=== PATIENT | female | born 1960 | race Caucasian/White ===

== ENCOUNTER → 2019-08-22 10:59 | Outpatient (BNVA) | payer BC, SELFPAY | PROVIDERS: Family Provider Nurse Practitioner; PCP Nurse Practitioner; Visit Provider Obstetrics & Gynecology | DX: N81.10 Cystocele, unspecified (principal); Z12.4 Encounter for screening for malignant neoplasm of cervix | CPT/HCPCS: 81000; 88175 ==

== ENCOUNTER 2019-09-10 13:03 | Observation (INO) | payer BC, SELFPAY ==
[2019-09-09 13:48] VITALS: BMI 23.0
[2019-09-10] VITALS (15 sets, daily range): BP systolic 121–179; BP diastolic 72–92; PULSE 60–91; RESP 11–20; TEMP 36.2–36.8; O2SAT 95–100
[2019-09-10 10:04] LABS: Add Urine Microscopic? NO
[2019-09-10] MEDS: sodium chloride 0.9% 1,000 ML 30 ML IV (10:36)
--- NOTE | 2019-09-10 10:41 | ANES.PREANE2 ---
Pre-Anesthetic Assessment Pre-Anesthetic Assessment: Height/Weight: Height 1.6 m Weight 58.967 kg Temp Pulse Resp BP Pulse Ox 98.3 F 70 18 179/92 97 09/10/19 10:38 09/10/19 10:38 09/10/19 10:38 09/10/19 10:38 09/10/19 10:38 Preop Diagnosis: Stress urinary incontinence Proposed Procedure: Operation Date: 09/10/19 10:40 Proposed Procedures p Midurethral single incision sling 90126 N39.3(Not Applicable) - Kye Yip MD Social: Social History: No alcohol and No tobacco Exam: Pre-Anes Outpt Exam: alert, oriented x 3, clear to auscultation bilaterally and regular rate & rhythm Airway: Submandibular: WNL Cervical ROM: WNL MP: 2 Dentition: Other (teeth ok) History/ROS: No significant history except as noted Pulmonary: Pulmonary: None reported CV/HEM: CV/HEM: None reported : : None reported GI: GI: None reported Metabolic: Metabolic: None reported Musc/skel: Musc/skel: None reported Neuropsych: Neuropsych: None reported Anesthetic Plan: ASA status: 1 Anesthesia: Anesthesia Evaluation and General Risk of > 500 ml blood loss (7ml/kg in children): No Meds/Allergies Current Medications: Current Medications Generic Name Dose Route Start Last Admin Trade Name Freq PRN Reason Stop Dose Admin Sodium Chloride 1,000 mls @ 30 ml s/hr 09/10/19 09:15 09/10/19 10:36 Sodium Chloride 0.9% IV 09/11/19 09:14 30 mls/hr .Q24H CHICHI Administration PFSH Anesthesia PFSH: Family History Grandmother Breast cancer maternal and paternal Diabetes maternal and paternal Hypertension maternal and paternal Family/Other Colon cancer paternal aunt Father Diabetes Hypertension Social History Smoking and tobacco status: never smoked Alcohol intake: never Data Anesthesia Cardiac Studies: No Data to Display
[2019-09-10 10:57] LABS: Basophils % 0.2 %; Eosinophils # 0.1 10^3/uL (0.0-0.8); Eosinophils % 1.2 %; Hematocrit 44.3 % (37.0-47.0); Hemoglobin 14.5 g/dL (11.5-15.3); Lymphocytes # 1.6 10^3/uL (0.8-4.8); Lymphocytes % 27.9 %; Mean Corpuscular HGB Conc 32.7 g/dL (30.0-36.0); Mean Corpuscular Hemoglobin 28.7 pg (28.0-34.0); Mean Corpuscular Volume 87.5 fL (81-99); Mean Platelet Volume 9.9 fL (7.4-10.4); Monocytes # 0.5 10^3/uL (0.2-0.9); Neutrophils # 3.6 10^3/uL (1.8-7.7); Neutrophils % 62.5 %; Nucleated Red Blood Cells % 0 %; Platelet Count 256 10^3/cmm (130-400); Red Blood Count 5.06 10^6/uL (4.1-5.3); Red Cell Distribution Width 12.9 % (12.1-15.1); White Blood Count 5.7 10^3/uL (4.0-10.0)
[2019-09-10 11:15] LABS: Chloride 103 mmol/L (98-107); Potassium 3.6 mmol/L (3.5-5.1); Sodium 140 mmol/L (136-145)
[2019-09-10 11:16] LABS: Bilirubin Urine Neg (NEGATIVE); Blood Urine Neg (Negative); Glucose Urine UA Norm (Normal); Ketones Urine Negative (Negative); Leukocyte Esterase Urine Negative (Negative); Nitrate Urine Negative (Negative); Protein Urine Neg (Negative); Urine Appearance Clear (CLEAR); Urine Color Straw (Yellow); Urobilinogen Urine Norm (Negative)
--- NOTE | 2019-09-10 11:19 | W.PM.OPSUD ---
Surgery/Procedure H&P Update DATE OF PROCEDURE: September 10, 2019 DATE H&P PERFORMED: 09/09/19 H&P UPDATE INFORMATION: I have reviewed H&P completed within last 30 days, I have examined patient prior to procedure and No changes to prior documentation PREOP DIAGNOSIS: Stress urinary incontinence PLANNED PROCEDURE: Operation Date: 09/10/19 10:40 Proposed Procedures p Midurethral single incision sling 80611 N39.3(Not Applicable) - Kye Yip MD
--- NOTE | 2019-09-10 12:15 | P.OP_ITS ---
Operative Report Date of procedure: September 10, 2019 Pre-op Diagnosis: Stress urinary incontinence Procedure Done: mid urethral sling Surgeon: Kye Yip Anesthesia: MAC Estimated blood loss (mL): 20 Complications: none Condition: stable Disposition: PACU Brief History: 59-year-old female with stress urinary incontinence Procedure: After obtaining informed consent, the patient was taken to the oper ating room and placed in the supine position, given general anesthesia, and prepped and draped in sterile fashion. The abdomen, vulva and vagina were prepped and draped in a sterile manner. A time out procedure was performed. Exam under anesthesia performed. A Gallardo catheter was placed in the bladder. The anterior vaginal mucosa beneath the midurethra was infiltrated with 0.5% Marcaine with epinephrine. A vertical midline incision was made beneath the midurethra, nearly 1.5 cm length. Careful submucosal dissection was performed bilaterally up to the interior portion of the inferior pubic ramus. The insertion of adductor longus tendon on the patient?s pubic ramus was identified as reference land gisele. Palpated the notch along the internal edge of ischiopubic ramus where the adductor longus tendon and the inferior pubic ramus meet. The needle of the SIS inserted aiming at the location of this notch. One of the integrated self-fixating tips place onto the needle by sliding it over the end of the needle. The needle/sling assembly was inserted toward the location of identified reference notch making sure that the flat of the handle is perpendicular to the desired path. The needle was tracked along the posterior surface of the ischiopubic ramus until the midline gisele on the mesh is approximately at the midline position under the urethra. The needle was removed and the same was repeated on the contralateral side until the appropriate sling tension under the urethra was achieved ensuring that the mesh lays flat. The needle was removed and vaginal incision was closed in a running interlocking fashion with 2-0 Vicryl. Then the Gallardo catheter was removed and cystoscope was inserted. The bladder was filled with sterile water. Complete evaluation of the bladder mucosa was performed noting no lacerations, dimpling, tears, bleeding of the mucosa or muscular layers. Both ureteral orifices were identified. Prompt excretion of urine from both ureteral orifices was noted. Cystoscope was withdrawn. Excellent hemostasis was obtained. Sponge, lap, needle, and instrument counts were correct times three. The patient was taken to the recovery room, awake and in stable condition.
[2019-09-10 12:57] LABS: Anion Gap 16.6 (5-19); Blood Urea Nitrogen 10 mg/dL (8-23); Calcium 9.1 mg/dL (8.5-10.5); Carbon Dioxide 24 mmol/L (22-29); Creatinine Clr Calc Pharmacy 64.9622; Glomerular Filtration Rate 73.2 mL/min (90-130); Glucose 85 mg/dL (65-115); Osmolality Calculated 285 mOsm/kg (285-295)
[2019-09-10] MEDS: dextrose 5%-lactated ringers 1,000 ML 125 ML IV ×2 (13:49→21:26)
[2019-09-10] MEDS: ketorolac 30 mg/mL INJ IVP ×2 (13:49→18:20)
[2019-09-10] MEDS: HYDROcodone-acetaminophen 5-325 mg Tablet PO (16:54)
[2019-09-10] MEDS: docusate sodium 100 mg Capsule PO (18:20)
[2019-09-11] MEDS: ketorolac 30 mg/mL INJ IVP ×2 (01:18→07:28)
[2019-09-11 04:00] VITALS: BP 118/68; PULSE 75; RESP 20; TEMP 36.5; O2SAT 98
[2019-09-11 04:52] LABS: Hemoglobin 12.3 g/dL (11.5-15.3); Mean Corpuscular HGB Conc 33.2 g/dL (30.0-36.0); Mean Corpuscular Hemoglobin 28.9 pg (28.0-34.0); Mean Corpuscular Volume 87.1 fL (81-99); Platelet Count 214 10^3/cmm (130-400); Red Blood Count 4.25 10^6/uL (4.1-5.3); Red Cell Distribution Width 12.9 % (12.1-15.1); White Blood Count 10.6 10^3/uL (4.0-10.0)
[2019-09-11] MEDS: dextrose 5%-lactated ringers 1,000 ML 125 ML IV (05:35)
--- NOTE | 2019-09-11 06:34 | PC.NURSE ---
d/c chang Chang catheter removed by this nurse at 0631. 100mL of urine was emptied from the bag before removal. 9mL water removed from balloon. Catheter in tact after removal. Pt tolerated well. Educated pt to hit the call light for assistance when she needed to get up and use the restroom.
[2019-09-11 07:28] VITALS: BP 124/76; PULSE 65; RESP 16; TEMP 36.4; O2SAT 98
[2019-09-11] MEDS: docusate sodium 100 mg Capsule PO (07:28)
--- NOTE | 2019-09-11 09:46 | PC.NURSE ---
PVR Gallardo removed by concrete [employer]ing [employer] operator nurse around 0630. Pt voided 100 mL around 0730, PVR ranged from 124-156 for an average of 140 mL. Pt voided 100 mL around 0900, PVR averaged 201 mL.
[2019-09-11 11:13] VITALS: BP 145/74; PULSE 66; RESP 16; TEMP 36.5; O2SAT 100
--- NOTE | 2019-09-11 11:18 | PM.OBGYDC ---
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 The procedure was performed without complication. Overnight observation was uneventful. She afebrile and hemodynamically stable, tolerating diet well, ambulating without difficulty. PVR after first void 150ml. Physical Exam Const: COMMON NORMALS: patient oriented x3, alert and well nourished GENERAL APPEARANCE: comfortable, well kempt and other (Normal Posture) Resp: COMMON NORMALS: clear to auscultation bilaterally EFFORT & INSPECTION: Yes able to speak in complete sentences AUSCULTATION: clear to auscultation bilaterally Cardio: COMMON NORMALS: regular rate, regular rhythm, S1 normal heart sound present and S2 normal heart sound present RATE: regular rate RHYTHM: regular rhythm HEART SOUNDS: S1 normal heart sound present, S2 normal heart sound present and no murmurs GI: COMMON NORMALS: Soft to palpation and non-tender PALPATION: Yes Soft to palpation, No Rebound tenderness present and Yes Other GI palpation findings present (No distention, no rigidity ) : EXTERNAL FEMALE EXAM: Yes normal appearance of the urethra SPECULUM EXAM - VAGINA: Yes lesion other (scar (Vaginal healing well, no signs of infecion)), No vaginal bleeding and Yes other (Vaginal wall- good support) SPECULUM EXAM - CERVIX: Yes Cervix absent BIMANUAL EXAM - VAGINA & UTERUS: Yes uterus absent BIMANUAL EXAM - ADNEXA, OTHER: Yes normal adnexae OB/EXTERNAL & SPECULUM: No vaginal bleeding Neuro: COMMON NORMALS: patient oriented x3 SENSORIUM/ORIENTATION: Yes alert Psych: APPEARANCE: Yes well kempt Urinary Catheter Management^: Gallardo: Cath Placed During This Visit: yes, but has since been removed by the nurse Reason for Continuing Indwelling Catheter: Decision to DC Catheter Urinary Catheter Date of Insertion: 09/10/19 Urinary Catheter Time of Insertion: 11:45 Date Urinary Catheter Removed: 09/11/19 Time Urinary Catheter Discontinued: 06:30 Discharge Data Data Completed and Pending: Labs from last 24 hours 09/11/19 09/10/19 09/10/19 04:38 10:30 10:30 WBC 10.6 H RBC 4.25 Hgb 12.3 Hct 37.0 MCV 87.1 MCH 28.9 MCHC 33.2 RDW 12.9 Plt Count 214 MPV 10.0 Carbon Dioxide 24 Anion Gap 16.6 BUN 10 Creatinine 0.8 GFR Calculation 73.2 L Glucose 85 Calculated Osmolal ity 285 Calcium 9.1 Blood Type A Positive Rho(D) Type Positive Antibody Screen Negative Laboratory Tests 09/10/19 10:30 WBC 5.7 Hgb 14.5 Hct 44.3 Plt Count 256 Vitals: Last Vital Signs Temp 97.7 F 09/11/19 11:13 Pulse 66 09/11/19 11:13 Resp 16 09/11/19 11:13 BP 145/74 09/11/19 11:13 Pulse Ox 100 09/11/19 11:13 Discharge Plan Discharge Patient Disposition: Home, Self-Care Condition: Stable Prescriptions: New ibuprofen 800 mg Tablet 800 mg PO Q8H Qty: 60 RF: 0 hydrocodone-acetaminophen 5-325 mg Tablet 1 - 2 tab PO Q6H PRN (Reason: Moderate To Severe Pain) Qty: 20 RF: 0 docusate sodium 100 mg Capsule 100 mg PO BID Qty: 30 RF: 0 No Action No Known Home Medications RF: 0 Discharge Orders: Discharge Order (Routine); Ordered 09/11/19 Ordered By: Kye Yip Referrals: Kye Yip MD [Physician] - 09/23/19 11:00 am Discharge Diet: Regular Discharge Activity: Increase activity as tolerated Patient Instructions: Hydrocodone/Acetaminophen (By mouth), Ibuprofen (By mouth), Laxative, Stool Softeners (By mouth), Bladder Sling Procedures (DC) Activity Restrictions/Additional Instructions: Pelvic rest for 6 weeks: no sex, tampons, vaginal douches. Return to ER if any fever, bleeding or increased pain. Discharge Attestations SCIENTIST/ENGINEER Time Spent in Discharge Care*: greater than 30 min Specific Discharge Activities: Specific discharge activities: educating patient Coding Level of Care Code Acute Banquet Lead for [facility] Fwd Diagnoses CHERELLE (stress urinary incontinence, female) N39.3
[2019-09-11 13:59] VITALS: BP 145/74; PULSE 66; RESP 16; TEMP 36.5; O2SAT 100
== END 2019-09-11 13:10 | disposition home or self-care (01) ==
LOC: MEDSURG 13:03
PROVIDERS: Admitting Provider Obstetrics & Gynecology; PCP Nurse Practitioner Family; Visit Provider Obstetrics & Gynecology
PROC: (CPT 57288; principal; 2019-09-10 10:40)
PROC: 0TJB8ZZ Inspection of Bladder, Via Natural or Artificial Opening Endoscopic (ICD-10-PCS; CPT 52000; 2019-09-10 10:40)
DX: N39.3 Stress incontinence (female) (male) (principal)
CPT/HCPCS: 57288; 12345; 36415; 51798; 80048; 81003; 85025; 85027; 86850; 86900; 96374; 96375; C1713; G0378; J0690; J1100; J1885; J2001; J2405; J2704; J2710; J3010; J3490; J7030

== ENCOUNTER → 2019-09-16 13:37 | Outpatient (BNVA) | payer BC, SELFPAY | PROVIDERS: PCP Nurse Practitioner Family; Visit Provider Obstetrics & Gynecology | DX: N39.3 Stress incontinence (female) (male) (principal) | CPT/HCPCS: 81000 ==

== ENCOUNTER → 2019-10-22 11:09 | Outpatient (BNVA) | payer BC, SELFPAY | PROVIDERS: PCP Nurse Practitioner Family; Visit Provider Obstetrics & Gynecology | DX: R30.0 Dysuria (principal) | CPT/HCPCS: 80053; 87077; 87086; 87186 ==

== ENCOUNTER → 2019-10-27 09:05 | Outpatient (BNVA) | payer BC, SELFPAY | PROVIDERS: PCP Nurse Practitioner Family; Visit Provider Nurse Practitioner | DX: R05 Cough (principal); R50.9 Fever, unspecified | CPT/HCPCS: 87400; 87635 ==

== ENCOUNTER → 2019-11-03 10:51 | Outpatient (BNVA) | payer BC, SELFPAY | PROVIDERS: PCP Nurse Practitioner Family; Visit Provider Nurse Practitioner | DX: R39.9 Unspecified symptoms and signs involving the genitourinary system (principal) | CPT/HCPCS: 81003 ==

== ENCOUNTER → 2019-11-10 08:29 | Outpatient (BNVA) | payer BC, SELFPAY | PROVIDERS: PCP Nurse Practitioner Family; Visit Provider Nurse Practitioner | DX: U07.1 COVID-19 (principal); Z20.828 Contact with and (suspected) exposure to other viral communicable diseases | CPT/HCPCS: 87635 ==

== ENCOUNTER → 2019-11-21 10:49 | Outpatient (BNVA) | payer BC, SELFPAY | PROVIDERS: PCP Nurse Practitioner Family; Visit Provider Nurse Practitioner Family | DX: Z11.59 Encounter for screening for other viral diseases (principal) | CPT/HCPCS: 87635 ==

== ENCOUNTER → 2020-02-10 15:30 | Outpatient (BNVA) | payer BC, SELFPAY | PROVIDERS: PCP Nurse Practitioner; Visit Provider Nurse Practitioner | DX: R30.0 Dysuria (principal); N39.0 Urinary tract infection, site not specified | CPT/HCPCS: 80053; 81003; 87077; 87086; 87184 ==

== ENCOUNTER → 2020-02-20 15:38 | Outpatient (BNVA) | payer BC, SELFPAY | PROVIDERS: PCP Nurse Practitioner; Visit Provider Nurse Practitioner | DX: R82.90 Unspecified abnormal findings in urine (principal) | CPT/HCPCS: 81000 ==

== ENCOUNTER → 2021-03-28 15:54 | Outpatient (BNVA) | payer BC, SELFPAY | PROVIDERS: PCP Nurse Practitioner; Visit Provider Nurse Practitioner Family | DX: N30.00 Acute cystitis without hematuria (principal); R30.0 Dysuria | CPT/HCPCS: 81000; 87077; 87086; 87184 ==

== ENCOUNTER → 2022-04-19 15:58 | Outpatient (BNVA) | payer BC, SELFPAY | PROVIDERS: PCP Nurse Practitioner; Visit Provider Clinical Nurse Specialist Adult Health | DX: I10 Essential (primary) hypertension (principal); R07.89 Other chest pain; E04.9 Nontoxic goiter, unspecified | CPT/HCPCS: 80053; 84436; 84443; 84481; 85025 ==

== ENCOUNTER → 2022-05-18 11:04 | Outpatient (BNVA) | payer BC, SELFPAY | PROVIDERS: PCP Clinical Nurse Specialist Adult Health; Visit Provider Nurse Practitioner Family | DX: R30.0 Dysuria (principal) | CPT/HCPCS: 81003; 87086 ==

== ENCOUNTER 2022-06-13 14:02 | Outpatient (CLI) | payer BC, SELFPAY ==
--- NOTE | 2022-06-13 14:30 | US_ITS ---
WS: [id number] THYROID ULTRASOUND HISTORY: enlarged thyroid in exam COMPARISON: None available. Right lobe: 1.4 cm x 1.4 cm x 4.5 cm (w x ap x l). Volume: 4.7 cm3. Normal size gland. Nearly isoechoic nodule with a hypoechoic border is noted in the mid RIGHT thyroid . This nodule measures 1.4 x 1.1 x 2.1 cm. There are a few small cystic areas present within the nodu le. There is additional calcification which is coarse in the central nodule. No echogenic foci. There is increased vascularity throughout the nodule. There is an additional benign colloid cyst in the me dial thyroid. Left lobe: 1.1 cm x 1.2 cm x 4.9 cm (w x ap x l). Volume: 3.1 cm3. Normal size and echotexture. No significant or dominant nodules are present. Isthmus: 0.1 cm. US/US thyroid [id number] IMPRESSION: 1. Mid RIGHT thyroid nodule (TI RADS 4). Recommend ultrasound-guided fine-need le aspiration RIGHT thyroid nodule. 2. Negative LEFT thyroid.
== END 2022-06-13 14:03 | disposition home or self-care (01) ==
LOC: RAD 14:02
PROVIDERS: PCP Clinical Nurse Specialist Adult Health; Visit Provider Clinical Nurse Specialist Adult Health
DX: E04.9 Nontoxic goiter, unspecified (principal); I10 Essential (primary) hypertension
CPT/HCPCS: 76536

== ENCOUNTER → 2022-10-16 12:56 | Outpatient (BNVA) | payer BC, SELFPAY | PROVIDERS: PCP Clinical Nurse Specialist Adult Health; Visit Provider Family Medicine | DX: N39.0 Urinary tract infection, site not specified (principal) | CPT/HCPCS: 81000 ==

== ENCOUNTER → 2024-07-07 15:10 | Outpatient (BNVA) | payer MEDICARE, SELFPAY | PROVIDERS: PCP Clinical Nurse Specialist Adult Health; Visit Provider Nurse Practitioner Family | DX: R39.9 Unspecified symptoms and signs involving the genitourinary system (principal) | CPT/HCPCS: 81000 ==

== ENCOUNTER 2025-03-04 09:23 | Outpatient (CLI) | payer MEDICARE, SELFPAY ==
--- NOTE | 2025-03-04 09:40 | MM_ITS ---
WS: [id number] BILATERAL SCREENING DIGITAL TOMOSYNTHESIS MAMMOGRAM WITH CAD HISTORY: SCREENING COMPARISON: 10/16/2007, 01/17/2012 Bilateral CC and MLO views with tomosynthesis and synthetic mammography submitted. Computer aided detection analyzed. Breast composition: The breasts are heterogeneously dense, which may obscure small masses. No suspicious masses, microcalcifications or architectural distortion. Numerous calcifications in each breast. MM/MM scr BI tomosynthesis [id number] IMPRESSION: BI-RADS: 2 - Benign FOLLOW UP: 1 Year Follow-up
== END 2025-03-04 09:24 | disposition home or self-care (01) ==
LOC: MOBLMAM 09:26
PROVIDERS: PCP Clinical Nurse Specialist Adult Health; Visit Provider Clinical Nurse Specialist Adult Health
DX: Z12.31 Encounter for screening mammogram for malignant neoplasm of breast (principal); R92.333 Mammographic heterogeneous density, bilateral breasts; R92.1 Mammographic calcification found on diagnostic imaging of breast
CPT/HCPCS: 77063; 77067